=== PATIENT | female | born 1995 | race Two or more races ===

== ENCOUNTER 2022-10-05 15:48 | Emergency (ER) | payer SELFPAY ==
[~2022-10-05] VITALS: Ht 157.5 cm; Wt 61.5 kg
[2022-10-05 15:54] VITALS: BP 130/69
[2022-10-05] MEDS ORDERED: PRED10PA PO (16:03)
[2022-10-05] MEDS ORDERED: SERT-141 PO (16:03)
== END 2022-10-05 20:25 | disposition left against medical advice (07) ==
LOC: M ED 15:48
DX: Z53.21 Procedure and treatment not carried out due to patient leaving prior to being seen by health care provider (principal)

== ENCOUNTER 2023-12-03 16:36 | Emergency (ER) | payer OTHER, SELFPAY ==
[~2023-12-03] VITALS: Ht 157.5 cm; Wt 51.4 kg
[~2023-12-03 16:36] MED LIST: PRED10PA PO; SERT-141 PO
[2023-12-03] MEDS ORDERED: BIRTH CONTROL (16:51)
[2023-12-03 17:42] LABS: BASO # 0.1 10^3/uL (0.0-0.2); BASO % 0.5 % (0.0-1.0); EOS # 0.1 10^3/uL (0.0-0.5); EOS % 0.7 % (0.0-3.0); HEMATOCRIT 43.4 % (36.0-47.0); HEMOGLOBIN 14.9 g/dl (12.0-15.5); LYMPH # 3.7 10^3/uL (1.5-5.0); LYMPH % 38.4 % (24.0-44.0); MEAN CORPUSCULAR HEMOGLOBIN 30.6 pg (27.0-33.0); MEAN CORPUSCULAR HGB CONC 34.3 g/dl (32.0-36.5); MEAN CORPUSCULAR VOLUME 89.1 fl (80.0-96.0); MONO # 0.5 10^3/uL (0.0-0.8); MONO % 5.3 % (2.0-8.0); NEUTROPHILS # 5.3 10^3/uL (1.5-8.5); NEUTROPHILS % 54.9 % (36.0-66.0); PLATELET COUNT, AUTOMATED 307 10^3/uL (150-450); RED BLOOD COUNT 4.87 10^6/uL (4.00-5.40); WHITE BLOOD COUNT 9.6 10^3/uL (4.0-10.0)
[2023-12-03 18:05] LABS: BILIRUBIN,DIRECT 0.3 MG/DL (<0.4); BILIRUBIN,TOTAL 0.7 MG/DL (0.3-1.2); TOTAL PROTEIN 6.9 G/DL (5.7-8.2)
[2023-12-03] MEDS ORDERED: KETOROLAC 30 MG/ML 1ML VIAL IV ONE (18:20)
[2023-12-03 18:21] LABS: RSV AMPLIFICATION NEGATIVE (NEGATIVE)
[2023-12-03] MEDS ORDERED: ONDANSETRON 4MG 2ML VIAL IV ONE (19:10)
[2023-12-03] MEDS: GASTROGRAFIN SOLUTION 30ML PO SCH ×2 (19:47→20:16)
[2023-12-03] MEDS ORDERED: ISOVUE-370 76% 100ML VIAL As Ordered ONE (20:06)
[2023-12-03 20:50] LABS: CHLAMYDIA DNA AMPLIFICATION NEGATIVE (NEGATIVE); GC DNA AMPLIFICATION NEGATIVE (NEGATIVE)
[2023-12-03] MEDS ORDERED: METR-265 PO (20:53)
[2023-12-03 22:08] VITALS: BP 122/71; TEMP 97.8; O2SAT 98
== END 2023-12-03 22:09 | disposition home or self-care (01) ==
LOC: M ED 16:36 → EDBD 16:36 → M ED 22:09
DX: N76.0 Acute vaginitis (principal); N83.201 Unspecified ovarian cyst, right side; F17.210 Nicotine dependence, cigarettes, uncomplicated; Z91.09 Other allergy status, other than to drugs and biological substances; Z79.2 Long term (current) use of antibiotics
CPT/HCPCS: 36415; 74177; 80047; 80076; 81001; 83690; 84702; 85025; 87210; 87631; 87661; 87810; 87850; 96374; 96375; 99284; J1885; J2405; Q9963; Q9967

== ENCOUNTER 2025-03-12 19:38 | Emergency (ER) | payer OTHER, SELFPAY ==
[~2025-03-12] VITALS: Ht 157.5 cm; Wt 51.2 kg
[~2025-03-12 19:38] MED LIST changes: +BIRTH CONTROL; +METR-265 PO
[2025-03-12 20:01] LABS: BASO # 0.1 10^3/uL (0.0-0.2); BASO % 0.5 % (0.0-1.0); EOS # 0.1 10^3/uL (0.0-0.5); EOS % 0.9 % (0.0-3.0); HEMATOCRIT 35.1 % (36.0-47.0); HEMOGLOBIN 12.2 g/dl (12.0-15.5); LYMPH # 3.4 10^3/uL (1.5-5.0); LYMPH % 33.3 % (24.0-44.0); MEAN CORPUSCULAR HEMOGLOBIN 31.3 pg (27.0-33.0); MEAN CORPUSCULAR HGB CONC 34.8 g/dl (32.0-36.5); MONO # 0.6 10^3/uL (0.0-0.8); MONO % 5.8 % (2.0-8.0); NEUTROPHILS % 59.2 % (36.0-66.0); PLATELET COUNT, AUTOMATED 373 10^3/uL (150-450); WHITE BLOOD COUNT 10.1 10^3/uL (4.0-10.0)
[2025-03-12 20:06] LABS: KETONE, URINE AUTO RFX NEGATIVE (NEGATIVE); MUCUS, URINE RFX SMALL (NEGATIVE); RBC, URINE AUTO RFX 0 /HPF (0-3); SQUAM EPITHELIAL CELL UR AURFX 19 /HPF (0-6); WBC, URINE AUTO RFX 2 /HPF (0-3)
[2025-03-12 20:07] LABS: LEUKOCYTE ESTERASE UR AUTO RFX TRACE (NEGATIVE); NITRITE, URINE AUTO RFX POSITIVE (NEGATIVE)
[2025-03-12 20:26] LABS: LIPASE 26 U/L (12-53)
[2025-03-12 20:28] LABS: ALBUMIN 3.7 G/DL (3.2-5.2); ALKALINE PHOSPHATASE 70 U/L (35-104); ALT/SGPT 16 U/L (7.0-40); AST/SGOT 11 U/L (<34); BILIRUBIN,DIRECT 0.2 MG/DL (<0.4); BILIRUBIN,TOTAL 0.4 MG/DL (0.3-1.2); BLOOD UREA NITROGEN 10 MG/DL (9-23); CALCIUM LEVEL 9.5 MG/DL (8.5-10.1); CARBON DIOXIDE LEVEL 24 MMOL/L (20-31); CHLORIDE LEVEL 110 MMOL/L (98-107); CREATININE FOR GFR 0.69 MG/DL (0.55-1.30); GLOMERULAR FILTRATION RATE > 90.0 (>60); GLUCOSE, FASTING 109 MG/DL (60-100); POTASSIUM SERUM 3.6 MMOL/L (3.5-5.1); SODIUM LEVEL 140 MMOL/L (136-145); TOTAL PROTEIN 6.3 G/DL (5.7-8.2)
[2025-03-12 20:29] LABS: HCG, SERUM QUALITATIVE POSITIVE (NEGATIVE)
[2025-03-12 22:07] LABS: HCG, SERUM QUANTITATIVE 59229.4 MIU/ML (<4.2)
[2025-03-13] MEDS ORDERED: CEFD1CAP9 PO (01:34)
[2025-03-13] MEDS ORDERED: ACET650T15 PO (01:36)
[2025-03-13 01:49] VITALS: BP 125/72; TEMP 97.7; O2SAT 100
== END 2025-03-13 01:52 | disposition home or self-care (01) ==
LOC: M ED 19:38
DX: O23.11 Infections of bladder in pregnancy, first trimester (principal); N30.01 Acute cystitis with hematuria; O20.8 Other hemorrhage in early pregnancy; O99.331 Smoking (tobacco) complicating pregnancy, first trimester; Z3A.01 Less than 8 weeks gestation of pregnancy; Z79.3 Long term (current) use of hormonal contraceptives

== ENCOUNTER 2025-03-18 09:38 | Emergency (ER) | payer OTHER, SELFPAY ==
[~2025-03-18] VITALS: Ht 157.5 cm; Wt 51.3 kg
[~2025-03-18 09:38] MED LIST changes: +ACET650T15 PO; +CEFD1CAP9 PO
[2025-03-18 10:26] LABS: APPEARANCE, URINE HAZY (CLEAR); BACTERIA, URINE AUTO NEGATIVE (NEGATIVE); BILIRUBIN, URINE AUTO NEGATIVE (NEGATIVE); BLOOD, URINE BLOOD NEGATIVE (NEGATIVE); COLOR, URINE YELLOW (YELLOW); GLUCOSE, URINE (UA) AUTO NEGATIVE (NEGATIVE); KETONE, URINE AUTO NEGATIVE (NEGATIVE); LEUKOCYTE ESTERASE, URINE AUTO NEGATIVE (NEGATIVE); MUCUS, URINE SMALL (NEGATIVE); NITRITE, URINE AUTO NEGATIVE (NEGATIVE); PROTEIN, URINE AUTO NEGATIVE (NEGATIVE); RBC, URINE AUTO 0 /HPF (0-3); SPECIFIC GRAVITY URINE AUTO 1.014 (1.002-1.035); SQUAMOUS EPITHELIAL CELL UR AU 6 /HPF (0-6); UROBILINOGEN, URINE AUTO 0.2 mg/dL (0.0-2.0); WBC, URINE AUTO 1 /HPF (0-3)
[2025-03-18 11:42] LABS: BASO % 0.4 % (0.0-1.0); EOS % 0.4 % (0.0-3.0); HEMATOCRIT 37.6 % (36.0-47.0); HEMOGLOBIN 12.8 g/dl (12.0-15.5); LYMPH # 2.3 10^3/uL (1.5-5.0); LYMPH % 34.4 % (24.0-44.0); MONO # 0.4 10^3/uL (0.0-0.8); MONO % 6.3 % (2.0-8.0); NEUTROPHILS # 3.9 10^3/uL (1.5-8.5); NEUTROPHILS % 58.2 % (36.0-66.0); PLATELET COUNT, AUTOMATED 287 10^3/uL (150-450); RED BLOOD COUNT 4.13 10^6/uL (4.00-5.40); WHITE BLOOD COUNT 6.7 10^3/uL (4.0-10.0)
[2025-03-18] MEDS: ACETAMINOPHEN 325 MG TAB PO ONE (11:45)
[2025-03-18 13:35] VITALS: BP 105/59; TEMP 98.3; O2SAT 100
== END 2025-03-18 13:51 | disposition home or self-care (01) ==
LOC: M ED 09:38
DX: O20.8 Other hemorrhage in early pregnancy (principal); O26.891 Other specified pregnancy related conditions, first trimester; Z3A.08 8 weeks gestation of pregnancy; O99.331 Smoking (tobacco) complicating pregnancy, first trimester; O99.341 Other mental disorders complicating pregnancy, first trimester; F17.200 Nicotine dependence, unspecified, uncomplicated; F41.9 Anxiety disorder, unspecified

== ENCOUNTER → 2025-06-03 | Outpatient (CLI) | payer MEDICAID | LOC: M WHC 07:27 | PROVIDERS: ATTEND Nurse Practitioner Family | DX: O44.02 Complete placenta previa NOS or without hemorrhage, second trimester (principal); Z3A.19 19 weeks gestation of pregnancy; O28.3 Abnormal ultrasonic finding on antenatal screening of mother ==

== ENCOUNTER → 2025-07-02 | Outpatient (CLI) | payer MEDICAID ==
[~2025-07-02] MED LIST changes: +ACET-1515 PO; -ACET650T15 PO
== END ==
LOC: M WHC 10:05
PROVIDERS: ATTEND Obstetrics & Gynecology
DX: O44.02 Complete placenta previa NOS or without hemorrhage, second trimester (principal); Z3A.23 23 weeks gestation of pregnancy

== ENCOUNTER → 2025-07-02 | Outpatient (CLI) | payer MEDICAID ==
[2025-07-02 14:13] LABS: PLATELET COUNT, AUTOMATED 340 10^3/uL (150-450)
[2025-07-02 14:57] LABS: HIV 1&2 SCREEN NEGATIVE (NEGATIVE)
[2025-07-02 15:04] LABS: HEPATITIS C VIRUS ABY INDEX < 0.02 INDEX (<0.8)
[2025-07-02 15:50] LABS: Trichomonas vaginalis (AMP) NOT DETECTED (NEGATIVE)
[2025-07-02 16:14] LABS: GC DNA AMPLIFICATION NEGATIVE (NEGATIVE)
== END ==
LOC: M PLALAB 10:54
PROVIDERS: ATTEND Nurse Practitioner Family
DX: Z34.80 Encounter for supervision of other normal pregnancy, unspecified trimester (principal)

== ENCOUNTER → 2025-07-05 | Outpatient (CLI) | payer MEDICAID | LOC: M PLALAB 09:20 | PROVIDERS: ATTEND Nurse Practitioner Family | DX: Z34.80 Encounter for supervision of other normal pregnancy, unspecified trimester (principal) ==

== ENCOUNTER → 2025-07-30 | Outpatient (CLI) | payer MEDICAID, OTHER | LOC: M WHC 06:41 | PROVIDERS: ATTEND Obstetrics & Gynecology | DX: Z34.80 Encounter for supervision of other normal pregnancy, unspecified trimester (principal); Z3A.27 27 weeks gestation of pregnancy ==

== ENCOUNTER → 2025-08-02 | Outpatient (CLI) | payer OTHER, MEDICAID ==
[~2025-08-02] MED LIST changes: +ACET-907 PO; +PRENTAB9 PO
[2025-08-05 12:42] LABS: HERPES ZOSTER, VARICELLA IgG 5.80 S/CO (>=1.00)
[2025-08-05 13:25] LABS: HSV 1 IGG TYPE SPECIFIC 50.40 index (<0.90); HSV 2 IGG TYPE SPECIFIC < 0.90 index (<0.90)
[2025-08-06 12:12] LABS: CYTOMEGALOVIRUS IgM ANTIBODY < 30.00 AU/mL (<30.00)
[2025-08-06 18:47] LABS: HERPES ZOSTER, VARICELLA IgM <= 0.90 (<=0.90)
[2025-08-06 19:22] LABS: TOXOPLASMA IGM ANTIBODY < 8.00 AU/mL (<8.00)
[2025-08-07 05:57] LABS: ANTI PARVO VIRUS LEVEL IGG 0.7 (<0.9); ANTI PARVO VIRUS LEVEL IgM 0.1 (<0.9)
== END ==
LOC: M PLALAB 12:55
PROVIDERS: ATTEND Nurse Practitioner Family
DX: O36.5930 Maternal care for other known or suspected poor fetal growth, third trimester, not applicable or unspecified (principal); Z3A.00 Weeks of gestation of pregnancy not specified

== ENCOUNTER 2025-08-27 09:20 | Outpatient (CLI) | payer MEDICAID, OTHER ==
[~2025-08-27] VITALS: Ht 154.9 cm; Wt 64.5 kg
[~2025-08-27 09:20] MED LIST changes: -ACET-907 PO; -PRENTAB9 PO
[2025-08-27] MEDS ORDERED: PRENTAB9 PO (09:47)
[2025-08-27] MEDS ORDERED: ACET-907 PO (09:47)
[2025-08-27] MEDS ORDERED: HOME MED LIST COMPLETE! XX SCH (09:50)
[2025-08-27 09:52] VITALS: BP 110/73; O2SAT 99
[2025-08-27 13:08] LABS: PLATELET COUNT, AUTOMATED 352 10^3/uL (150-450)
[2025-08-27 13:37] LABS: INR 1.0
[2025-08-27] MEDS: BETAMETHASONE SOLUSPAN 6 MG/ML 5 ML VIAL IM ONE (14:50)
== END 2025-08-27 15:25 | disposition home or self-care (01) ==
LOC: M LDO 09:20
PROVIDERS: ATTEND Advanced Practice Midwife
DX: O26.853 Spotting complicating pregnancy, third trimester (principal); O35.00X0 Maternal care for (suspected) central nervous system malformation or damage in fetus, unspecified, not applicable or unspecified; O26.893 Other specified pregnancy related conditions, third trimester; R25.2 Cramp and spasm; Z3A.31 31 weeks gestation of pregnancy
CPT/HCPCS: 59025; 76816; 76820; 85027; 85384; 85610; 85730; 86850; 86900; 86901; 96372; G0463; J0702

== ENCOUNTER 2025-08-28 14:48 | Outpatient (CLI) | payer MEDICAID, OTHER ==
[~2025-08-28] VITALS: Ht 154.9 cm; Wt 65.0 kg
[~2025-08-28 14:48] MED LIST changes: +ACET-907 PO; +PRENTAB9 PO
[2025-08-28 15:00] VITALS: BP 98/49
[2025-08-28] MEDS: BETAMETHASONE SOLUSPAN 6 MG/ML 5 ML VIAL IM ONE (15:20)
== END 2025-08-28 15:25 | disposition home or self-care (01) ==
LOC: M LDO 14:48
PROVIDERS: ATTEND Obstetrics & Gynecology
DX: O26.853 Spotting complicating pregnancy, third trimester (principal); O35.9XX0 Maternal care for (suspected) fetal abnormality and damage, unspecified, not applicable or unspecified; Z3A.31 31 weeks gestation of pregnancy
CPT/HCPCS: 59025; 96372; G0463; J0702

== ENCOUNTER 2025-09-02 16:38 | Outpatient (CLI) | payer OTHER, MEDICAID ==
[~2025-09-02] VITALS: Ht 154.9 cm; Wt 64.8 kg
[2025-09-02 17:03] VITALS: BP 96/54
[2025-09-02] MEDS ORDERED: HOME MED LIST COMPLETE! XX SCH (17:05)
[2025-09-02 18:09] VITALS: BP 107/56
== END 2025-09-02 19:03 | disposition home or self-care (01) ==
LOC: M LDO 16:38
PROVIDERS: ATTEND Obstetrics & Gynecology
DX: O26.893 Other specified pregnancy related conditions, third trimester (principal); R10.84 Generalized abdominal pain; Z3A.32 32 weeks gestation of pregnancy; Z87.59 Personal history of other complications of pregnancy, childbirth and the puerperium
CPT/HCPCS: 59025; G0463

== ENCOUNTER → 2025-09-28 | Outpatient (REF) | payer MEDICAID, OTHER | LOC: M SFHCWAGY 12:55 | PROVIDERS: ATTEND Obstetrics & Gynecology | DX: Z36.85 Encounter for antenatal screening for Streptococcus B (principal); Z3A.36 36 weeks gestation of pregnancy ==